=== PATIENT | female | born 1955 | race Caucasian/White ===

== ENCOUNTER 2025-01-12 06:25 | Day surgery (SDC) | payer OTHER, SELFPAY | END 2025-01-12 10:31 | disposition home or self-care (01) | LOC: GI 06:25 | PROVIDERS: ATTENDING PHYSICIAN Specialist; FAMILY PHYSICIAN Internal Medicine | DX: Z12.11 Encounter for screening for malignant neoplasm of colon (principal); D12.0 Benign neoplasm of cecum; K64.8 Other hemorrhoids | CPT/HCPCS: 45380; 88305 ==